=== PATIENT | female | born 1965 | race Caucasian/White ===

== ENCOUNTER 2025-02-01 00:27 | Emergency (ER) | payer BC, SELFPAY ==
[2025-02-01] VITALS (8 sets, daily range): BP systolic 108–139; BP diastolic 77–95; BMI 26.1
[2025-02-01 00:55] LABS: Hematocrit 33.9 % (37.0-47.0); Hemoglobin 11.2 g/dL (12.0-16.0); Mean Corp Hgb Conc. 33.0 g/dL (33.0-37.0); Mean Corpuscular Volume 81.1 fL (81.0-99.0); Nucleated Red Blood Cells % 0 %; Platelet Count 303 10^3/uL (130-400); Red Cell Dist. Width 14.0 % (11.5-14.5)
[2025-02-01 01:21] LABS: ALT (SGPT) 14 U/L (0-35); AST (SGOT) 21 U/L (14-36); Albumin 4.4 g/dl (3.5-5.0); Alkaline Phosphatase 97 U/L (38-126); Blood Urea Nitrogen 15 mg/dl (7-17); Calcium 9.3 mg/dl (8.4-10.2); Carbon Dioxide 29 mmol/L (22-30); Chloride 107 mmol/L (98-107); Estimated Creatinine Clearance 83 ml/min; Glucose 94 mg/dl (70-99); Potassium 4.2 mmol/L (3.5-5.1); Sodium 141 mmol/L (135-145); Total Protein 6.8 g/dl (6.3-8.2); eGFR > 60.00
[2025-02-01 01:33] LABS: Troponin I < 0.012 ng/ml
--- NOTE | 2025-02-01 02:30 | ED.GENMED ---
History of Present Illness
General
Chief Complaint: Chest Pain
Source: patient
Exam Limitations: none
Time Seen by Provider: 02/01/25 02:11
Nursing documentation reviewed up to this point in time: agreed with
History of Present Illness
History of Present Illness:
59-year-old female presents with chest pain 2 episodes since 6 AM, recently had colitis, was referred to see cardiology, had a stress test and an echo stress test was negative echo showed dilatation of the aorta, told to have yearly exams, she is
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
Past History
Past History
ED Past Medical History: Arrthythmia
ED Past Surgical History:
Social History
Tobacco: Non-smoker
Alcohol: None
Drug: None
Personal:
Living: with family
Employment: Employed
Family History
Family History: Negative CAD
Review of Systems
Review of Systems
All Other Systems: Not applicable
Phy Exam
Physical Exam
Physical Exam:
Physical Exam
General: no apparent distress, not acutely ill
Neck: No jaundice
Heart: s1/s2 regular rate and rhythm, no murmur. equal radial pulses.
Lungs: no acute respiratory distress. clear bilaterally
Abdomen: Nontender
Neuro: alert and oriented. no focal neurological deficits
Skin: no rash
Psychiatric: well kept. interactive and cooperative
Extremities: no edema. no calf tenderness.
Scores
Heart Score for Chest Pain Patients
STEMI patient?: No
History: Slightly or Non-Suspicious
ECG: Normal
Age: >45 - <65 years
Risk Factors: 1 or 2 Risk Factors
Troponin: </= Normal Limit
Heart Score for Chest Pain Patients: 2
Heart Score Risk: 2.5% MACE over next 6 weeks
Course
Orders/Labs/Results
Orders:
Orders
02/01/25 00:34
EKG [Electrocardiogram (*1)] Urgent
Reason for Study: Chest Pain
EKG- Treatment ONCE
02/01/25 00:43
Cardiac Monitoring- Treatment ONCE
IV Insert/Care/Rem.- Treatment PRN
O2 Therapy [RESP] Urgent
Titrate/Wean O2 to maintain O2 sat greater than (%): 90
Special Instructions: Maintain sats >/=90%
Pulse Ox/spot Check [RESP] Urgent
Quantity: 1
Special Instructions: ON ROOM AIR
02/01/25 00:46
Complete Blood Count/With Diff Urgent
Comprehensive Metabolic Panel Urgent
Lipase Urgent
Comment: ADD ON
Troponin I Urgent
02/01/25 02:26
CT Chest Angio W/wo Iv Contras Urgent
Comment:
Reason For Exam: Chest pain aortic arch aneurysm
02/01/25 02:32
Add On- LAB Urgent
Tests Added?: Lipase
02/01/25 03:27
Troponin I Urgent
02/01/25 05:56
CARDIOLOGY CONSULT Routine
Consulting Provider: Jamie Berkowitz
Was physician already notified: Yes
02/01/25 08:50
Pantoprazole [Protonix IV] 40 mg IV NOW STA
02/01/25 08:51
Pantoprazole [Protonix] 40 mg .ROUTE .STK-MED ONE
02/01/25 08:53
Pantoprazole [Protonix] 40 mg PO NOW STA
Abnormal Lab Results
02/01/25
00:46
RBC 4.18 L 10^6/uL
(4.20-5.40)
Hgb 11.2 L g/dL
(12.0-16.0)
Hct 33.9 L %
(37.0-47.0)
MCH 26.8 L pg
(27.0-31.0)
MPV 10.6 H fL
(7.4-10.4)
02/01/25 00:46
02/01/25 00:46
Vital Signs
Initial and Last Documented VS:
Initial Vital Signs
Temp Pulse Resp BP Pulse Ox
98.4 F 74 18 139/95 100
02/01/25 00:30 02/01/25 00:30 02/01/25 00:30 02/01/25 00:30 02/01/25 00:30
Last Documented Vital Signs
Temp Pulse Resp BP Pulse Ox
98.4 F 74 14 121/77 98
02/01/25 00:30 02/01/25 07:45 02/01/25 07:45 02/01/25 07:00 02/01/25 07:45
MDM/Problems Addressed
Differential Diagnosis Includes:
ACS pancreatitis dissection stress anxiety
MDM/Problems Addressed:
Chest pain
Chronic conditions affecting care: Arrhythmia
Acute Exacerbation and/or Progression of Chronic Illness: Arrhythmia
*Pulse Oximetry
SaO2: 100
Oxygen Mode of Delivery: Room air
Patient hypoxic: no
*Critical Care Note
Total Time (30-74mins, 75-104mins- exclusive of procedures): 31
Update Note
Update Note:
5:30 AM, CT reviewed with radiology has some abnormalities in the right coronary, troponins are undetectable and EKGs look okay patient is comfortable here she visiting from out of town have requested cardiology consultation patient updated
ED Attending Note
-
Portions of this chart may have been created with voice recognition software.� Occasional wrong word or��sound alike� substitutions may have occurred due to the inherent limitations of voice recognition software.
Discharge Plan
Departure
Patient Disposition: Home (Routine Discharge)
Date of Disposition: 02/01/25
Time of Disposition: 08:37
Patient with high blood pressure during this ER visit?: No
Discharge Problem:
Chest pain
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
Prescriptions:
New
pantoprazole 40 mg tablet,delayed release (DR/EC)
40 mg PO DAILY Qty: 30 0RF
Referrals:
UNKNOWN - PT DOES,NOT KNOW [Family Provider]
Activity Restrictions/Additional Instructions:
You should follow-up with your tool marker as soon as possible after your ER visit.
Thank you for visiting the Emergency Department at [facility].
1. Please schedule a follow up appointment as directed. Call first thing tomorrow morning to make an appointment.
2. If indicated, please take your medications as instructed and indicated on discharge paperwork.
3. If any of your symptoms do not improve, or persist, or become more severe within 6-12 hours, please return to the emergency department for further care.
4. Please return to the emergency department if you develop a headache, neck pain/stiffness, fever greater than 100.4F, chest pain, shortness of breath, persistent nausea, vomiting, slurred speech, difficulty walking, numbness/tingling, weakness,
signs of infection or any other symptoms that are worrisome to you.
Please call [phone] if you have any questions.
Interventions
Interventions:
*Risk Screen - Suicide Last Done: 02/01/25 00:30
*General Assessment Last Done: 02/01/25 00:30
*Neglect/Abuse Screening Last Done: 02/01/25 00:30
*ED- Fall Risk Assessment Last Done: 02/01/25 00:30
*ED COVID-19 Vaccine History Last Done: 02/01/25 00:30
*Nursing Disposition Last Done: 02/01/25 09:38
ED- Cardiac Assessment Last Done: 02/01/25 00:45
Discharge Date and Time
Discharge Date/Time: 02/01/25 09:39
Print Language: SERBIAN
[2025-02-01 03:54] LABS: Lipase 137 U/L (23-300)
[2025-02-01 04:16] LABS: Troponin I < 0.012 ng/ml
--- NOTE | 2025-02-01 08:33 | CON.CAR ---
Consultation
Consultation Request
Date/Time Consultation Requested: 02/01/25
Date/Time Consultation Performed: 02/01/25
Requesting Provider: Dr Duarte
Performing Provider: Dr Berkowitz
Reason for Consultation: Abnormal CT scan
Medical History
-
Chief Complaint: cp
History of Present Illness:
59-year-old female with a history of paroxysmal SVT, mild ascending aortic dilation and colitis presenting for evaluation of chest pain. She is visiting from [place] as her daughter attends a [employer] camp. Yesterday morning, she had a brief episode
of midsubsternal chest burning that was associated with a feeling of as if she got hit with a rock it resolved in 10 minutes. She was at rest with it. This recurred later in the evening causing her to call for medical care. Of note, with her
travel she has been eating poorly last night had [employer] for dinner. She relates that she had a bout of colitis a month ago with this a CT scan was done showing mild ascending aortic dilation. In further evaluation she had an echocardiogram and a
stress test. She reports she went 10 minutes on the treadmill without any issue. She follows with a coater carbon paper Livia Torres.
She has been undergoing evaluation for SVT ablation as she has had 2 recent episodes requiring adenosine. She does not take a standing beta-alicia rather uses propranolol as needed.
Past Medical History
Past Medical History: Other (As above)
Social History
Tobacco: Former Smoker (Quit at 41 years old)
Alcohol: Occasional
Personal: Partner
Employment: Employed (Works as a nurse)
Family History
Family History: Reviewed & Not Pertinent
Review of Systems
-
All other systems: Negative unless noted
Physical Exam
Vital Signs
Temp Pulse Resp BP Pulse Ox
98.4 F 74 14 121/77 98
02/01/25 00:30 02/01/25 07:45 02/01/25 07:45 02/01/25 07:00 02/01/25 07:45
Lab Results
02/01/25 00:46
02/01/25 00:46
Troponin I < 0.012 ng/ml 02/01/25 03:27
Physical Exam
General: Well Developed, Well Nourished, No Apparent Distress and Comfortable
HEENT: Normocephalic
Respiratory: Clear, Wheezes, Crackles and Rhonchi
Cardiac: S1/S2, Regular Rhythm, Irregular Rhythm and Murmur
GI: Soft, Non Tender and Non Distended
Genito-urinary: Costovertebral Angle Tend
Musculoskeletal: No Clubbing, No Cyanosis and No Edema
Neuro: AO x 3
Impression / Plan
-
Chest pain: No ischemic EKG changes, troponin negative x 2. Chest pain more consistent with a GI etiology. Recommend PPI.
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 It does take a turn to the right but not a malignant course. Recommend follow-up of the final read.
- Even if anomalous, does not appear to be a high risk lesion. She had recent provocative testing that is reported to be normal.
- Will ensure that report is forwarded to her primary coater carbon paper, recommend consideration of cardiac coronary artery CTA for further evaluation.
PSVT: She asked my opinion on ablation. She reported multiple episodes of SVT requiring adenosine. More recently, she was in the ED 2 times. Ablation seems to be a good consideration and possibly curative.
Ascending aortic dilation: Mild, would recommend consideration of standing beta-alicia and possible statin. She will discuss with her typical coater carbon paper in follow-up.
Thank you for allowing us to precipitate in her care. No cardiovascular reason she cannot be discharged to follow-up with her typical coater carbon paper in [place].
Data Reviewed
-
EKG: Tracing Personally Visualized and interpreted (Normal sinus rhythm nonspecific ST changes.) and Other
Radiology: Discussed with Physician (Dr. Duarte and Destiny, will need to forward completed final report to Dr Salty Torres) and Discussed with Patient
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
intramural however artifacts decreased ability to characterize. Recommend coronary ar)
Total Time Spent with Patient (in minutes): 75
[2025-02-01] MEDS: PROTONIX 40 MG PO (08:54)
== END 2025-02-01 09:39 | disposition home or self-care (01) ==
LOC: EMR 00:27
PROVIDERS: Emergency Medicine; CONSULT PHYSICIAN Internal Medicine Cardiovascular Disease; EMERGENCY PHYSICIAN Emergency Medicine
DX: R07.9 Chest pain, unspecified (principal); I47.10 Supraventricular tachycardia, unspecified; I71.22 Aneurysm of the aortic arch, without rupture; Z79.899 Other long term (current) drug therapy; Z87.891 Personal history of nicotine dependence
CPT/HCPCS: 99284; 71275; 80053; 83690; 84484; 85025; 93005; Q9967